=== PATIENT | female | born 1960 | race Caucasian/White ===

== ENCOUNTER 2022-08-02 08:26 | Outpatient (CLI) | payer BC, SELFPAY ==
[2022-08-02 14:53] LABS: Albumin* 4.3 g/dL (3.3-5.0); Chloride* 102 mmol/L (96-114)
[2022-08-02 14:54] LABS: Potassium* 3.5 mmol/L (3.6-5.1); Sodium* 138 mmol/L (135-149)
[2022-08-02 14:56] LABS: Aspartate Amino Transferase* 32 U/L (12-35); Bilirubin Total* 0.6 mg/dL (0.1-1.5); Blood Urea Nitrogen* 18 mg/dL (7-30); Carbon Dioxide* 31 mmol/L (20-32); Cholesterol* 202 mg/dL (90-199); Creatinine* 0.7 mg/dL (0.5-1.5); Estimated Glomerular Filt Rate 100 ml/min; Total Protein* 6.7 g/dL (6.0-8.3)
[2022-08-02 14:57] LABS: Alanine Aminotransferase* 43 U/L (4-35); Alkaline Phosphatase* 60 U/L (40-150); Calcium* 9.6 mg/dL (8.4-10.6); Glucose* 88 mg/dL (60-115); HDL Cholesterol* 74 mg/dL (>=50); LDL Cholesterol Calculated 98 mg/dL (<100); Triglycerides* 150 mg/dL (40-149)
== END 2022-08-02 08:27 | disposition home or self-care (01) ==
PROVIDERS: PCP Nurse Practitioner Family; Visit Provider Nurse Practitioner Family
DX: I10 Essential (primary) hypertension (principal); E78.5 Hyperlipidemia, unspecified
CPT/HCPCS: 80053; 80061

== ENCOUNTER 2022-10-30 09:34 | Outpatient (CLI) | payer BC, SELFPAY ==
--- NOTE | 2022-10-30 09:45 | CRLHL7_ITS ---
For Patients: As a result of the Century Cures Act, medical imaging exams and procedure reports are released immediately into your electronic medical record. You may view this report before your referring provider. If you have questions, please contact your health care provider. BILATERAL SCREENING MAMMOGRAM WITH COMPUTER-AIDED DETECTION AND TOMOSYNTHESIS TECHNIQUE: CC and MLO views were obtained. These mammographic images have been obtained using full-field digital technique. These mammographic images were interpreted with the benefit of computer-aided detection. Breast Tomosynthesis was used in this interpretation. COMPARISON FILM: 05/29/19, 12/26/17, 07/13/14. FINDINGS: There are scattered areas of fibroglandular density IMPRESSION: There is no radiographic evidence for malignancy. ASSESSMENT: BI-RADS Category 1: Negative RECOMMENDATION: Routine screening mammogram in 1 year. A lay language report of this examination will be provided to the patient. Maximo Duarte M.D. Diagnostic Radiologist [email or web address] KAUSHIK/Dictated by: Maximo Duarte MD @ 10/30/2022 12:00:00 PM (Electronically Signed)
== END 2022-10-30 09:35 | disposition home or self-care (01) ==
LOC: MAMMO 09:35
PROVIDERS: PCP Nurse Practitioner Family; Visit Provider Nurse Practitioner Family
DX: Z12.31 Encounter for screening mammogram for malignant neoplasm of breast (principal)
CPT/HCPCS: 77063; 77067

== ENCOUNTER 2023-04-16 14:56 | Outpatient (CLI) | payer BC, SELFPAY | END 2023-04-16 14:57 | disposition home or self-care (01) | LOC: INJ CL 14:56 | PROVIDERS: PCP Nurse Practitioner Family; Visit Provider Family Medicine | DX: M17.11 Unilateral primary osteoarthritis, right knee (principal); M25.561 Pain in right knee | CPT/HCPCS: 64454 ==

== ENCOUNTER 2023-04-23 12:13 | Outpatient (CLI) | payer BC, SELFPAY | END 2023-04-23 12:14 | disposition home or self-care (01) | PROVIDERS: PCP Nurse Practitioner Family; Visit Provider Family Medicine | DX: M17.11 Unilateral primary osteoarthritis, right knee (principal); M25.561 Pain in right knee; G89.29 Other chronic pain | CPT/HCPCS: 64624; J2250; J3010 ==

== ENCOUNTER 2023-11-08 14:53 | Outpatient (CLI) | payer BC, SELFPAY ==
--- NOTE | 2023-11-08 15:00 | CT_ITS ---
Patient: CELESTINE EASON Facility:?[facility] Patient ID:?[id number] Site Patient ID:?[id number]. Site :?[id number] Study:?CT-Chest WITHOUT-11/08/2023 3:20:46 PM Ordering Physician:NESTOR Final Report: INDICATION: Thoracic aorta ectasia. TECHNIQUE: Noncontrast CT images of the chest. COMPARISON: None. FINDINGS: Solid 6 mm right lower lobe pulmonary nodule (series 3, image 54). Calcified granuloma and bandlike scarring/atelectasis in the lingula. No focal consolidation, pleural effusion, or pneumothorax. Aneurysmal dilatation of the ascending thoracic aorta measuring up to 4.4 cm. Normal caliber of the pulmonary artery. Heart size is borderline enlarged. No coronary artery calcifications. Calcified hilar and mediastinal lymph nodes. No hilar or mediastinal lymphadenopathy. Limited images through the upper abdomen demonstrate splenic granulomas. Multilevel thoracic spondylosis. No aggressive osseous lesions. IMPRESSION: 1. Aneurysmal dilatation of the ascending thoracic aorta measuring up to 4.4 cm. 2. Solid right lower lobe pulmonary nodule measuring 6 mm. Follow-up chest CT would be recommended in 12 months. Please note that all CT scans at this facility use dose modulation, iterative reconstruction, and/or weight-based dosing when appropriate to reduce radiation dose to as low as reasonably achievable. Dictated by Valdez Frederick MD @ 11/11/2023 7:18:19 AM Signed by:?Valdez Frederick MD @11/11/2023 7:18:19 AM (Electronic Signature)
== END 2023-11-08 14:54 | disposition home or self-care (01) ==
LOC: CT 14:54
PROVIDERS: PCP Nurse Practitioner Family; Visit Provider Family Medicine
DX: I77.810 Thoracic aortic ectasia (principal); I71.21 Aneurysm of the ascending aorta, without rupture; R91.1 Solitary pulmonary nodule
CPT/HCPCS: 71250

== ENCOUNTER 2023-12-31 10:01 | Outpatient (CLI) | payer BC, SELFPAY ==
--- NOTE | 2023-12-31 12:20 | W.ANESCHARGE ---
Anesthesia Charges Start Date/Time Anesthesia Start Date: 12/31/23 Anesthesia Start Time: 11:30 Stop Date/Time Anesthesia Stop Date: 12/31/23 Anesthesia Stop Time: 12:19
--- NOTE | 2023-12-31 12:52 | W.ANESCHARGE ---
Anesthesia Charges Start Date/Time Anesthesia Start Date: 12/31/23 Anesthesia Start Time: 11:30 Stop Date/Time Anesthesia Stop Date: 12/31/23 Anesthesia Stop Time: 12:19
== END 2023-12-31 10:02 | disposition home or self-care (01) ==
LOC: OP CLINIC 10:01
PROVIDERS: PCP Nurse Practitioner Family; Visit Provider Surgery
DX: Z12.11 Encounter for screening for malignant neoplasm of colon (principal); K63.5 Polyp of colon; K64.4 Residual hemorrhoidal skin tags; R19.5 Other fecal abnormalities
CPT/HCPCS: 00811; 45385; 88305; J2704

== ENCOUNTER 2024-06-10 14:00 | Outpatient (CLI) | payer BC, SELFPAY | END 2024-06-10 14:01 | disposition home or self-care (01) | PROVIDERS: PCP Nurse Practitioner Family; Visit Provider Physician Assistant Medical | DX: K13.79 Other lesions of oral mucosa (principal) | CPT/HCPCS: 82306; 82607; 83735; 84443 ==

== ENCOUNTER 2024-08-10 09:30 | Outpatient (CLI) | payer BC, SELFPAY | END 2024-08-10 09:31 | disposition home or self-care (01) | LOC: LKVREF 09:31 | PROVIDERS: PCP Nurse Practitioner Family; Visit Provider Physician Assistant Medical | DX: E53.8 Deficiency of other specified B group vitamins (principal) | CPT/HCPCS: 82607 ==

== ENCOUNTER 2025-05-11 21:20 | Emergency (ER) | payer BC, SELFPAY ==
[2025-05-11] VITALS (12 sets, daily range): BP systolic 100–134; BP diastolic 57–108; PULSE 62–78; RESP 13–20; TEMP 36.3; O2SAT 92–96; BMI 33.0
--- OUTSIDE RECORDS SUMMARY | 2025-05-11 21:22 | XMS_ITS ---
Author Name Interface, [id number] lity Address [address] [facility] [address] [address] [facility] Address [address] [facility] [address] [address] Allergies and Adverse Reactions Medication/Group Name Reaction Severity Date No known allergies Plan Date Type Value 05/16/2023 APPOINTMENT HIGH RISK NEW PT 90 MIN Reason for Visit HIGH RISK NEW PT 90 MIN Encounters Date Name 05/16/2023 Family history of br east cancer Immunizations Date Name Route Dose Instructions Refusal Reason Stat us Covid-19 vaccine ([employer] Completed Flu vaccine - Adult Patient declined/rejected Not Administered Medications Date Name Route Dose Frequency Instructions Start Date End Date Status Fill Status Indication 05/16 Chlorth alidone Oral orally 1.0 tablet daily active 05/16 Miscell aneous Drug Tumeric-D active 05/16 Rosuvas tatin Calcium Oral orally 20.0 mg daily active 05/16 Losarta n Oral orally 100.0 mg daily active 05/16 Multivi tamins Oral Tablet active 05/16 Carvedi lol Oral orally 6.25 mg 2 times per day must administer with a meal/food active 05/16 Diclofe nac Topical Gel 1 % active Problems Diagnosis Status Date of Diagnosis Resolution Date Family history of breast cancer Active Vital Signs Date Type Value 05/16/2023 Intravascular Systolic 152 05/16/2023 Intravascular Diastolic 110 05/16/2023 Pain Scale 0.00 05/16/2023 Weight 228.60 05/16/2023 Height 68.00 05/16/2023 Oxygen Saturation 98.00 05/16/2023 BSA 2.16 05/16/2023 Heart Beat 87.00 05/16/2023 Respiratory Rate 16.00 05/16/2023 BMI 34.76
--- OUTSIDE RECORDS SUMMARY | 2025-05-11 21:22 | XMS_ITS | CCD ---
Author Name Interface, [id number] lity Address [address] [facility] [address] [address] Organization [facility] Address [address] [facility] [address] [address] Care Team Providers Care Clinical Biochemical Geneticist Name Role Phone Jason Lopez CNP Unavailable Unavailable Allergies and Adverse Reactions Medication/Group Name Reaction Severity Date No known allergies Reason for Visit HIGH RISK NEW PT 90 MIN Medications Date Name Route Dose Frequency Instructions Start Date End Date Status Fill Status Indication 05/16 Chlorth alidone Oral orally 1.0 tablet daily active 05/16 Multivi tamins Oral Tablet active 05/16 Diclofe nac Topical Gel 1 % active 05/16 Rosuvas tatin Calcium Oral orally 20.0 mg daily active 05/16 Carvedi lol Oral orally 6.25 mg 2 times per day must administer with a meal/food active 05/16 Losarta n Oral orally 100.0 mg daily active 05/16 Miscell aneous Drug Tumeric-D active Problems Diagnosis Status Date of Diagnosis Resolution Date Family history of breast cancer Active Social History Date Name Value 05/16/2023 Sex Female
--- OUTSIDE RECORDS SUMMARY | 2025-05-11 21:22 | XMS_ITS ---
Author Name Interface, [id number] lity Address [address] [facility] [address] [address] [facility] Address [address] [facility] [address] [address] Allergies and Adverse Reactions Medication/Group Name Reaction Severity Date No known allergies Plan Date Type Value 05/16/2023 APPOINTMENT HIGH RISK NEW PT 90 MIN Reason for Visit HIGH RISK NEW PT 90 MIN Encounters Date Name 05/16/2023 Family history of br east cancer Immunizations Date Name Route Dose Instructions Refusal Reason Stat us Covid-19 vaccine ([employer]) Completed Flu vaccine - Adult Patient declined/rejected [...]
--- OUTSIDE RECORDS SUMMARY | 2025-05-11 21:23 | XMS_ITS | CCD ---
Author Name Interface, [id number] lity Address [address] [place], [place] [address] [address] [facility] Address [facility] [address] [address] Care Team Providers Care Customer Program Manager Name Role Phone Jason Lopez CNP Unavailable Unavailable Allergies and Adverse Reactions Reason for Visit Medications Problems Social History
--- NOTE | 2025-05-11 21:34 | ED.NAVMDI ---
HPI - Nausea/Vomiting/Diarrhea General Time Seen by Provider: 21:34 Date Seen: 05/11/25 Chief complaint: Nausea/Vomiting Stated complaint: nausea Time Seen by Provider: 05/11/25 21:31 Source: patient Mode of arrival: EMS History of Present Illness HPI Narrative: Carla is a 64 yo female who has a past medical history of hypertension, hyperlipidemia, who presents the emergency department from home by EMS for evaluation of nausea, vomiting, abdominal pain. Patient reports that earlier today she told her about a rash that she noticed a few days ago. Patient reports pruritic rash to her bilateral arms, bra line, abdomen. Patient states that was concerned so wanted to go in to get it checked out to make sure she did have shingles. Patient went saw primary care provider at the [facility] and was diagnosed with iiritant dermatitis. Patient was prescribed prednisone and hydroxyzine. Patient states that she did not take the prednisone tonight because she did not want to be awake all night so she was going to start the prednisone in the morning. Patient states that she did take the hydroxyzine around 630/7:00 p.m.. Patient states that she was feeling fine, ate dinner however shortly after dinner she started feeling out of it, had some lower abdominal cramping, felt sweaty, and then have a large amount of diarrhea which she reports as mixed soft/liquid stool. Patient reports nausea but denies any vomiting. Patient denied any fever, chills, chest pain, shortness of breath, dysuria, hematuria no other complaints. Patient states she is feeling better upon arrival to the emergency department, denies any sick contacts, no recent illnesses. Patient reports she did take her weight loss medication today which she states is an injection she takes weekly. Patient reports she has tolerated this in the past. Denies any other new medications, no new allergen/triggers. Related Data Home Medications ?Medication ?Instructions ?Recorded ?Confirmed cholecalciferol (vitamin D3) 25 PO DAILY 03/23/22 05/11/25 mcg (1,000 unit) tablet multivitamin (Multiple Vitamins 1 tab PO QDAY 03/23/22 05/11/25 tablet) Previous Rx's ?Medication ?Instructions ?Recorded rosuvastatin 20 mg tablet 20 mg PO DAILY #90 tabs 10/28/23 potassium chloride 10 mEq 10 meq PO QDAY #90 caps 03/27/24 capsule,extended release cyanocobalamin (vitamin B-12) 1,000 mcg sublingual QDAY #90 tabs 06/11/24 1,000 mcg sublingual tablet carvedilol 6.25 mg tablet 6.25 mg PO BID #180 tabs 02/02/25 hydroxyzine HCl 10 mg tablet 10 - 20 mg (1 - 2 x 10 mg) PO TID 05/11/25 PRN itching #30 tabs prednisone 20 mg tablet 40 mg (2 x 20 mg) PO QDAY 5 days 05/11/25 #10 tabs valsartan 320 1 tab PO QDAY #90 tabs 05/11/25 mg-hydrochlorothiazide 25 mg tablet Allergies Allergy/AdvReac Type Severity Reaction Status Date / Time lisinopril Allergy Intermediate cough and Verified 05/11/25 14:19 insomnia Review of Systems Narrative: Past medical history, past surgical history, medications, allergies, family history, and social history were reviewed with the patient. No additional pertinent items. A medically appropriate review of systems was performed with pertinent positives and negatives noted in HPI, all other systems negative. [facility] Medical History History of herpes labialis ?Z86.19 - Personal history of other infectious and parasitic diseases (ICD-10) Surgical History Status post tonsillectomy and adenoidectomy ?Z90.89 - Acquired absence of other organs (ICD-10) History of benign breast biopsy (04/30/12) ?Z98.890 - Other specified postprocedural states (ICD-10) Family History (Updated 08/10/24 @ 10:06 by Jacquie Donahue PA-C) Paternal Grandfather Lung cancer Father Diabetes Heart problem Maternal Grandmother Alcohol dependence Mother Acquired lymphedema Sister Breast cancer Social History (Updated 08/10/24 @ 10:07 by Jacquie Donahue PA-C) Narrative: . 2 biological children, 2 step children Smoking Status: Never smoker Exam Const: Vital Signs, click to edit/add: Vital Signs - 24 hr 05/11/25 21:25 05/11/25 22:22 Temperature 97.4 F L Pulse Rate 65 Pulse Rate [Pulse Oximeter] 71 Respiratory Rate 20 16 Blood Pressure 100/63 Blood Pressure [Ri ght Upper Arm] 134/108 H Pulse Oximetry 96 93 Oxygen Delivery Me thod Room Air Room Air Course Course ED Course: General: Afebrile, no acute distress HEENT: Normocephalic, atraumatic, conjunctiva normal. MMM Neck: non-tender, supple Cardio: regular rate. regular rhythm Resp: Normal work of breathing, no respiratory distress, lungs clear bilaterally, no wheezing, rhonchi, rales Chest/Back: no visual signs of trauma, no midline tenderness, no CVA tenderness Abdomen: soft, non distension, no tenderness, no peritoneal signs Neuro: alert and fully oriented. CN II-XII grossly intact. Grossly normal strength and sensation in all extremities. MSK: no deformities. Normal range of motion Integumentary/Skin: no rash visualized, normal color Psych: normal affect, normal behavior Vital Signs Vital signs: Initial Vital Signs Temperature 97.4 F L 05/11/25 21:25 Temperature Source Temporal Artery Scan 05/11/25 21:25 Pulse Rate 71 05/11/25 21:25 Pulse Rhythm Regular 05/11/25 21:25 Respiratory Rate 20 05/11/25 21:25 Blood Pressure 134/108 H 05/11/25 21:25 Blood Pressure Mean 116 H 05/11/25 21:25 Blood Pressure Position Sitting 05/11/25 21:25 Pulse Oximetry 96 05/11/25 21:25 Oxygen Delivery Method Room Air 05/11/25 21:25 Vital Signs Temperature 97.4 F L 05/11/25 21:25 Pulse Rate 71 05/11/25 21:25 Respiratory Rate 20 05/11/25 21:25 Blood Pressure 134/108 H 05/11/25 21:25 Pulse Oximetry 96 05/11/25 21:25 Oxygen Delivery Method Room Air 05/11/25 21:25 Temperature 97.4 F L 05/11/25 21:25 Pulse Rate 65 05/11/25 22:22 Respiratory Rate 16 05/11/25 22:22 Blood Pressure 100/63 05/11/25 22:22 Pulse Oximetry 93 05/11/25 22:22 Oxygen Delivery Method Room Air 05/11/25 22:22 Medications Administered Medications: Discontinued Medications Generic Name Dose Route Start Last Admin Trade Name Freq PRN Reason Stop Dose Admin Sodium Chloride 1,000 mls @ 1,000 mls/hr 05/11/25 22:00 05/11/25 23:19 0.9 % Sodium Chloride 1000 Ml IV 05/11/25 22:59 Infused .Q1H JOHN Infusion MDM - Nausea/Vomiting/Diarrhea MDM Narrative Medical decision making narrative: Carla is a 64 yo female who has a past medical history of hypertension, hyperlipidemia, who presents the emergency department from home by EMS for evaluation of episode of abdominal pain/cramping along with nausea and large amount of diarrhea. Upon arrival patient is ill but nontoxic appearing, afebrile, in distress. Patient does report significant improvement of symptoms upon arrival to the emergency department. Initially patient hypertensive with blood pressure 134/108, heart rate 71, oxygen 96% on room air. Abdomen is soft, nontender, nondistended with no peritoneal signs. Upon arrival patient declined any medications for her symptoms, will treat with 1 L IV fluid bolus, comprehensive labs performed. Comprehensive labs remarkable for leukocytosis with white blood cell count of 14.14, neutrophils 86, hemoglobin 14.6, potassium 3.4, sodium 137, creatinine 0.8, no transaminitis, normal lipase. Urinalysis with no evidence of acute infection. Influenza/RSV/COVID negative. I personally viewed interpreted CT scan of the abdomen pelvis which demonstrates mild descending and rectosigmoid colonic wall thickening which could reflect sequelae of mild colitis. Given patient's lower abdominal cramping, diarrhea/loose watery stools suspect etiology of patient's symptoms. On re-evaluation patient continues to be resting comfortably, no distress. Patient tolerating p.o. in the emergency department, denies any abdominal pain. Patient feels comfortable with discharge home with continued supportive care, bland/soft diet, slowly advance as tolerated. Patient does not want any medications or prescriptions at this time. Also discussed pulmonary nodules. Patient reports she believes she has had these in the past and will follow-up with her primary care provider regarding these. Plan for discharge with close outpatient follow-up. Strict return precautions discussed. Patient has also mentioned agrees the plan. Medical Records Attestation: I reviewed the patient's medical records. Lab Data Attestation: I reviewed the patient's lab results. Labs: Lab Results 05/11/25 05/11/25 05/11/25 Range/Units 21:32 21:50 23:12 WBC 14.14 H (4.50-11.00) K/uL RBC 4.70 (4.00-5.20) m/uL Hgb 14.6 (12.0-16.0) gm/dL Hct 43.7 (33.0-51.0) % MCV 93 (80-100) fL MCH 31 (26-34) pg MCHC 33 (32-36) gm/dL RDW Coeff of Woodrow 13.7 (11.5-15.5) % Plt Count 301 (140-440) K/uL Neut % (Auto) 86.0 H (42.0-72.0) % Lymph % (Auto) 8.0 L (20-44) % [place] % (Auto) 4.6 (0.0-11.0) % Eos % (Auto) 1.0 (0.0-7.0) % Baso % (Auto) 0.1 (0.0-3.0) % Neut # (Auto) 12.20 H (1.7-7.0) K/uL Lymph # (Auto) 1.10 (0.90-2.90) K/uL [place] # (Auto) 0.70 (0.00-0.90) K/UL Eos # (Auto) 0.10 (0.00-0.50) K/uL Baso # (Auto) 0.00 (0.00-0.30) K/uL Abs Immat Gran (auto) 0.00 (0.00-0.30) K/uL Imm/Tot Granulo (auto) 0.3 % Sodium 137 (135-149) mmol/L Potassium 3.4 L (3.6-5.1) mmol/L Chloride 106 (96-114) mmol/L Carbon Dioxide 25 (20-32) mmol/L Anion Gap 6 L (7-15) mEq/L BUN 25 (7-30) mg/dL Creatinine 0.8 (0.5-1.5) mg/dL Estimated Creat Clear 58.84 Estimated GFR 83 ml/min Glucose 126 H (60-115) mg/dL Lactate 1.7 (0.5-1.9) mmol/L Calcium 9.2 (8.4-10.6) mg/dL Total Bilirubin 0.5 (0.1-1.5) mg/dL AST 33 (12-35) U/L ALT 32 (4-35) U/L Alkaline Phosphatase 61 (40-150) U/L Total Protein 6.6 (6.0-8.3) g/dL Albumin 4.1 (3.3-5.0) g/dL Lipase 174 (23-300) U/L Urine Color Yellow (Yellow) Urine Appearance Clear (Clear) Urine pH 6.0 (5.0-8.5) Ur Specific [place] 1.015 (1.000-1.030) Urine Protein Negative (Negative) Urine Glucose (UA) Negative (Negative) Urine Ketones Negative (Negative) Urine Blood Negative (Negative) Urine Nitrite Negative (Negative) Urine Bilirubin Negative (Negative) Urine Urobilinogen 0.2 (0.2-1.0) Ur Leukocyte Esterase Negative (Negative) Urine RBC 0-2 (0-2) Urine WBC 0-2 (0-5) Ur Squamous Epith Cells Few (None-Few) Urine Bacteria Few A (None) SARS-CoV-2 (PCR) Negative SARS-CoV-2 (Negative) Influenza Type A (PCR) Negative PCR FLU A (Negative) Influenza Type B (PCR) Negative PCR FLU B (Negative) RSV (PCR) Negative PCR RSV (Negative) Imaging Data CT scan - abdomen: Radiologist's impression: FINDINGS: Lower chest: Left lung base calcified granuloma. Additional adjacent noncalcified pulmonary nodule measures 11 mm (series 2, image 5). Right lower lobe nodule measuring 4 mm (image 15). Liver: Unremarkable. Gallbladder and bile ducts: Unremarkable. Pancreas: Unremarkable. Spleen: Unremarkable. Adrenal glands: Unremarkable. Kidneys: Symmetric renal enhancement. No hydronephrosis or hydroureter. No obstructing calculi. GI tract: No bowel obstruction. Fluid is noted within the colon. Mild descending and rectosigmoid colonic wall thickening. No CT evidence of acute appendicitis. Vasculature: Scattered atherosclerotic calcifications. No abdominal aortic aneurysm. Grossly patent vasculature. Lymph nodes: No suspicious lymphadenopathy. Peritoneum/Abdominal Wall: No ascites or pneumoperitoneum. No acute abdominal wall abnormality. Pelvis: Normal bladder. No suspicious adnexal mass. Bones: No acute abnormality. IMPRESSION: 1. Mild descending and rectosigmoid colonic wall thickening may reflect sequelae of mild colitis. 2. Bilateral pulmonary nodules with the largest noncalcified nodule at the left lung base measuring 11 mm. Recommend comparison with any prior imaging, if available, to assess for stability. Otherwise recommend follow-up with nonemergent dedicated CT of the chest. Please note that all CT scans at this facility use dose modulation, iterative reconstruction, and/or weight-based dosing when appropriate to reduce radiation dose to as low as reasonably achievable. Dictated by Catalino Delarosa MD @ 05/11/2025 11:30:18 PM Discharge Plan Discharge Clinical Impression: Diarrhea, Colitis Patient Disposition: Home, Self-Care Condition: Improved Instructions: Colitis (ED) Additional Instructions: Please follow-up with your primary care provider in the next 3-5 days for further evaluation and follow-up. Please call to schedule appointment. Please continue old medications as previously directed. Please rest, drink plenty of fluids, eat a bland/soft/BRAT diet (bananas/rice/applesauce/toast) and slowly advance as tolerated over the next 2-3 days. Please return to the emergency department if you develop high fever, severe pain, persistent vomiting, worsening symptoms. It was a pleasure taking care of you today. We hope you feel better soon. Prescriptions: No Action rosuvastatin 20 mg tablet 20 mg PO DAILY Qty: 90 3RF prednisone 20 mg tablet 40 mg PO QDAY 5 Days Qty: 10 0RF hydroxyzine HCl 10 mg tablet 10 - 20 mg PO TID PRN (Reason: itching) Qty: 30 0RF valsartan-hydrochlorothiazide 320-25 mg tablet 1 tab PO QDAY Qty: 90 3RF cholecalciferol (vitamin D3) 25 mcg (1,000 unit) tablet PO DAILY multivitamin [Multiple Vitamins] Tablet 1 tab PO QDAY potassium chloride 10 mEq capsule, extended release 10 meq PO QDAY Qty: 90 3RF cyanocobalamin (vitamin B-12) 1,000 mcg tablet, sublingual 1,000 mcg sublingual QDAY Qty: 90 0RF Rx Instructions: once daily carvedilol 6.25 mg tablet 6.25 mg PO BID Qty: 180 0RF Follow Up/Referrals: Jacquie Donahue PA-C [Primary Care Provider, Family Practice] Stand Alone Forms: [employer] Info Instructions
[2025-05-11 21:56] LABS: Lactate* 1.7 mmol/L (0.5-1.9)
--- OUTSIDE RECORDS SUMMARY | 2025-05-11 21:58 | XMS_ITS | CCD ---
Author Name Interface, [id number] lity Address [address] [facility] [address] [address] Organization [facility] Address [address] [facility] [address] [address] Care Team Providers Care Schedule Clerk Name Role Phone Jason Lopez CNP Unavailable [...]
--- OUTSIDE RECORDS SUMMARY | 2025-05-11 21:58 | XMS_ITS ---
Author Name Interface, [id number] lity Address [address] [place], [place] [address] [place] [address] [facility] Address [facility] [address] [place] [address] Allergies and Adverse Reactions Plan Reason for Visit Encounters Immunizations Medications Problems Vital Signs
--- OUTSIDE RECORDS SUMMARY | 2025-05-11 21:58 | XMS_ITS ---
Author Name Interface, [id number] lity Address [address] [facility] [address] [address] [facility] Address [address] [facility] [address] [address] Allergies and Adverse Reactions Medication/Group Name Reaction Severity Date No known allergies Plan Date Type Value 05/16/2023 APPOINTMENT HIGH RISK NEW PT 90 MIN Reason for Visit HIGH RISK NEW PT 90 MIN Encounters Date Name 05/16/2023 Family history of br east cancer Immunizations Date Name Route Dose Instructions Refusal Reason Stat us Covid-19 vaccine ([employer]) Completed Flu vaccine - Adult Patient declined/rejected [...]
--- OUTSIDE RECORDS SUMMARY | 2025-05-11 21:58 | XMS_ITS | CCD ---
Author Name Interface, [id number] lity Address [address] [place], [place] [address] [place] [address] [facility] Address [facility] [address] [address] Care Team Providers Care Tanker Driver Name Role Phone Jason Lopez CNP Unavailable Unavailable Allergies and Adverse Reactions Reason for Visit Medications Problems Social History
[2025-05-11 22:12] LABS: Albumin* 4.1 g/dL (3.3-5.0); Chloride* 106 mmol/L (96-114); Potassium* 3.4 mmol/L (3.6-5.1); Sodium* 137 mmol/L (135-149)
[2025-05-11 22:13] LABS: Hematocrit* 43.7 % (33.0-51.0); Hemoglobin* 14.6 gm/dL (12.0-16.0); Immature Granulocytes Pct Auto 0.3 %; Mean Corpuscular HGB Conc 33 gm/dL (32-36); Mean Corpuscular Hemoglobin 31 pg (26-34); Mean Corpuscular Volume 93 fL (80-100); RDW Coefficient of Variation % 13.7 % (11.5-15.5); Red Blood Count* 4.70 m/uL (4.00-5.20); White Blood Count* 14.14 K/uL (4.50-11.00)
[2025-05-11 22:15] LABS: Alanine Aminotransferase* 32 U/L (4-35); Alkaline Phosphatase* 61 U/L (40-150); Anion Gap 6 mEq/L (7-15); Aspartate Amino Transferase* 33 U/L (12-35); Bilirubin Total* 0.5 mg/dL (0.1-1.5); Blood Urea Nitrogen* 25 mg/dL (7-30); Carbon Dioxide* 25 mmol/L (20-32); Creatinine* 0.8 mg/dL (0.5-1.5); Est. Creatinine Clearance* 58.84; Estimated Glomerular Filt Rate 83 ml/min; Total Protein* 6.6 g/dL (6.0-8.3)
[2025-05-11 22:16] LABS: Calcium* 9.2 mg/dL (8.4-10.6); Glucose* 126 mg/dL (60-115)
[2025-05-11 22:19] LABS: Immature Granulocytes Abs Auto 0.00 K/uL (0.00-0.30); Lymphocytes Absolute Auto 1.10 K/uL (0.90-2.90); Slide Review Reflex No
[2025-05-11 22:31] LABS: PCR FLU A Negative PCR FLU A (Negative); PCR FLU B Negative PCR FLU B (Negative); PCR RSV Negative PCR RSV (Negative); SARS PCR* Negative SARS-CoV-2 (Negative)
--- NOTE | 2025-05-11 22:45 | CRLHL7_ITS ---
For Patients: As a result of the Century Cures Act, medical imaging exams and procedure reports are released immediately into your electronic medical record. You may view this report before your referring provider. If you have questions, please contact your health care provider. INDICATION: Abdominal pain. TECHNIQUE: CT abdomen and pelvis acquired with 88 cc Isovue 370 IV contrast. COMPARISON: None. FINDINGS: Lower chest: Left lung base calcified granuloma. Additional adjacent noncalcified pulmonary nodule measures 11 mm (series 2, image 5). Right lower lobe nodule measuring 4 mm (image 15). Liver: Unremarkable. Gallbladder and bile ducts: Unremarkable. Pancreas: Unremarkable. Spleen: Unremarkable. Adrenal glands: Unremarkable. Kidneys: Symmetric renal enhancement. No hydronephrosis or hydroureter. No obstructing calculi. GI tract: No bowel obstruction. Fluid is noted within the colon. Mild descending and rectosigmoid colonic wall thickening. No CT evidence of acute appendicitis. Vasculature: Scattered atherosclerotic calcifications. No abdominal aortic aneurysm. Grossly patent vasculature. Lymph nodes: No suspicious lymphadenopathy. Peritoneum/Abdominal Wall: No ascites or pneumoperitoneum. No acute abdominal wall abnormality. Pelvis: Normal bladder. No suspicious adnexal mass. Bones: No acute abnormality. IMPRESSION: 1. Mild descending and rectosigmoid colonic wall thickening may reflect sequelae of mild colitis. 2. Bilateral pulmonary nodules with the largest noncalcified nodule at the left lung base measuring 11 mm. Recommend comparison with any prior imaging, if available, to assess for stability. Otherwise recommend follow-up with nonemergent dedicated CT of the chest. Please note that all CT scans at this facility use dose modulation, iterative reconstruction, and/or weight-based dosing when appropriate to reduce radiation dose to as low as reasonably achievable. Dictated by Catalino Delarosa MD @ 05/11/2025 11:30:18 PM (Electronically Signed)
[2025-05-11 23:16] LABS: Appearance Urine Clear (Clear)
== END 2025-05-11 23:57 | disposition home or self-care (01) ==
PROVIDERS: Emergency Provider Emergency Medicine; PCP Physician Assistant Medical
DX: K52.9 Noninfective gastroenteritis and colitis, unspecified (principal)
CPT/HCPCS: 36415; 74177; 80048; 80053; 81001; 83605; 83690; 85025; 87086; 87631; 94761; 99284; 99285; J7030; Q9967

== ENCOUNTER 2025-06-01 07:36 | Outpatient (CLI) | payer BC, SELFPAY | END 2025-06-01 07:37 | disposition home or self-care (01) | PROVIDERS: PCP Physician Assistant Medical; Visit Provider Family Medicine | DX: I10 Essential (primary) hypertension (principal) | CPT/HCPCS: 82565; 84132; 84295 ==

== ENCOUNTER 2025-07-01 10:48 | Outpatient (CLI) | payer BC, SELFPAY | END 2025-07-01 10:49 | disposition home or self-care (01) | PROVIDERS: PCP Family Medicine; Visit Provider Family Medicine | DX: I77.810 Thoracic aortic ectasia (principal) | CPT/HCPCS: 93306 ==